=== PATIENT | female | born 1950 | race Two or more races ===

== ENCOUNTER 2021-12-21 13:10 | Emergency (ER) | payer OTHER, MEDICAID ==
[~2021-12-21 13:10] MED LIST: FURO1TAB33 PO; GLIP10TA9 PO; LOSA50TA30 PO; METF-929 PO; OMEP-434 PO; SERT-375 PO; SITA100T7 PO
[2021-12-21 14:01] VITALS: BP 152/75
[2021-12-21 14:42] LABS: Basophils # (auto) 0 10 ^3/uL (0-0.2); Basophils % (auto) 0.8 % (0.0-2.0); Eosinophils # (auto) 0.3 10 ^3/uL (0-0.8); Hematocrit 38.4 % (36.0-46.0); Hemoglobin 12.6 g/dL (12.2-16.2); Lymphocytes % (auto) 39.7 % (10.0-50.0); Mean Corpuscular Hemoglobin 28.1 pg (28.0-32.0); Mean Corpuscular Hgb Conc. 32.9 g/dL (32.0-36.0); Mean Corpuscular Volume 85.4 fL (80.0-100.0); Monocytes # (auto) 0.5 10 ^3/uL (0-1.3); Neutrophils # (auto) 2.3 10 ^3/uL (1.6-8.6); Neutrophils % (auto) 44.5 % (37.0-80.0); Nucleated Red Blood Cells % 0.1 %; Red Blood Cells 4.49 10^6/uL (4.0-5.20); Red Cell Distribution Width 13.9 % (11.8-14.3); White Blood Cell 5.1 10^3/uL (4.4-10.8)
[2021-12-21 15:09] LABS: Albumin 3.5 g/dL (3.4-5.0); BUN/Creatinine Ratio 30.7; Calcium 9.7 mg/dL (8.5-10.1); Magnesium 2.2 mg/dL (1.6-2.6)
[2021-12-21 15:12] LABS: Bilirubin, Total 0.4 mg/dL (0.2-1.0); Total Protein 7.3 g/dL (6.4-8.2)
[2021-12-21] MEDS ORDERED: ALPRAZolam 0.5 MG TAB PO ONE ×2 (16:00)
[2021-12-21] MEDS ORDERED: AZIT250T9 PO (18:39)
== END 2021-12-22 19:08 | disposition home or self-care (01) ==
LOC: ER 13:10
DX: R51.9 Headache, unspecified (principal); J40 Bronchitis, not specified as acute or chronic; E11.9 Type 2 diabetes mellitus without complications; I10 Essential (primary) hypertension
CPT/HCPCS: 36415; 70450; 71045; 74176; 80053; 83735; 83880; 84484; 85025; 93005